=== PATIENT | female | born 1985 | race Asian ===

== ENCOUNTER 2016-05-04 02:58 | Emergency (ER) | payer OTHER ==
[2016-05-04] MEDS ORDERED: DELTASONE20 MG (04:42)
[2016-05-04] MEDS ORDERED: BENADRYL25 MG (04:42)
== END 2016-05-04 04:42 | disposition home or self-care (01) ==
LOC: CED 02:58
DX: L50.0 Allergic urticaria (principal); J45.909 Unspecified asthma, uncomplicated; Z86.19 Personal history of other infectious and parasitic diseases
CPT/HCPCS: 96374; 96375; 99284; J1200; J2930

== ENCOUNTER → 2016-11-11 | Outpatient (CLI) | payer OTHER ==
[~2016-11-11] MED LIST: BENADRYL25 MG; DELTASONE20 MG
--- NOTE | ~2016-11-11 | CR4 ---
[facility] A Service of [facility] RADIOLOGY TEXT RESULTS PATIENT: DEVORAH BRIAN HLEI LOCATION: [facility] : 81 UNIT #: [id number] AGE: [address]: Tati Combs SEX: F ORDER DR: [id number] [facility] [address] [place], [place] [address] [id number] O MR#: [id number] Acc #: [id number] NAME: DEVORAH BRIAN : 1985 SEX: F STUDY DATE/TIME: 11/11/2016 11:57 UNIT: [facility] ROOM: STUDY DESCRIPTION: CR Abdomen Flat Upright or Dec Attending Physician: Tati Daly A.P.R.N. Referring Physician: Tati Daly A.P.R.N. Ordering Physician: Tati Daly A.P.R.N. Primary Care Physician: Tati Daly A.P.R.N. MEDICAL IMAGING REPORT This report is preliminary unless electronic signature is present EXAM Flat and upright views of the abdomen, 11/11/2016. HISTORY 31-year-old female; abdominal tenderness in the umbilical region with soft mass and constipation. These symptoms have been present for 1 month. COMPARISON None FINDINGS No free air is demonstrated in the upright views of the abdomen. There is a nonspecific, but nonobstructive-appearing bowel gas pattern. No significant retained colonic stool burden is identified. Only mild colonic stool burden is present. No acute osseous abnormalities are identified. The imaged lung bases are clear. Benign phleboliths are present bilaterally in the pelvis. What appears to be an artifact external to the patient projects over both hip regions on the upright view. IMPRESSION Normal supine and upright views of the abdomen. Dictated by... Kymberly Perez M.D. THIS IS AN ELECTRONICALLY VERIFIED REPORT [facility] A Service of [facility] RADIOLOGY TEXT RESULTS PATIENT: DEVORAH BRIAN HLEI [id number] : 81 UNIT #: [id number] AGE: [address]: Tati Combs SEX: F ORDER DR: Kymberly Perez M.D. at 11/12/2016 9:39 AM LUISA/pari TD: 11/11/2016 16:46 JOB #: [id number] MEDICAL IMAGING REPORT Page 1 of 1 COPY
== END | disposition home or self-care (01) ==
LOC: CRAD 11:25
DX: R10.819 Abdominal tenderness, unspecified site (principal)
CPT/HCPCS: 74020